=== PATIENT | female | born 1975 | race Two or more races ===

== ENCOUNTER 2020-10-28 11:45 | Outpatient (CLI) | payer OTHER ==
[2020-10-28] MEDS ORDERED: INTEGRA PLUS C1 EACH PO (15:00)
== END 2020-10-28 11:51 | disposition home or self-care (01) ==
LOC: EKG 11:45
PROVIDERS: ATTEND Obstetrics & Gynecology
DX: I10 Essential (primary) hypertension (principal); R94.31 Abnormal electrocardiogram [ECG] [EKG]

== ENCOUNTER 2020-10-29 10:45 | Inpatient (IN) | payer OTHER ==
[~2020-10-29] VITALS: Ht 157.5 cm; Wt 61.2 kg
[~2020-10-29 10:45] MED LIST: INTEGRA PLUS C1 EACH PO
[2020-11-03] MEDS ORDERED: INTEGRA PLUS C1 EACH PO (13:29)
[2020-11-03] MEDS ORDERED: OXYC1TAB9 PO (13:29)
[2020-11-03] MEDS ORDERED: NABUMETONE750 MG PO (13:29)
== END 2020-11-03 13:46 | disposition home or self-care (01) | DRG 743 ==
LOC: OB/GYN 11-01 05:35 → O/R 11-01 05:35 → OB/GYN 11-01 07:00
PROVIDERS: ADMIT Obstetrics & Gynecology; ATTEND Obstetrics & Gynecology
PROC: 0UB70ZZ Excision of Bilateral Fallopian Tubes, Open Approach (ICD-10-PCS; 2020-11-01)
PROC: 0UT90ZZ Resection of Uterus, Open Approach (ICD-10-PCS; principal; 2020-11-01 07:00)
DX: N72 Inflammatory disease of cervix uteri (principal); D25.0 Submucous leiomyoma of uterus; D25.1 Intramural leiomyoma of uterus; D25.2 Subserosal leiomyoma of uterus; N83.8 Other noninflammatory disorders of ovary, fallopian tube and broad ligament; D28.2 Benign neoplasm of uterine tubes and ligaments; N93.9 Abnormal uterine and vaginal bleeding, unspecified